=== PATIENT | male | born 1980 | race American Indian/Alaskan Native ===

== ENCOUNTER 2017-07-09 21:05 | Emergency (ER) | payer SELFPAY ==
[2017-07-09] MEDS ORDERED: ASPIRIN PO ONE (21:38)
--- NOTE | 2017-07-10 01:22 | XRay Report ---
FINAL REPORT EXAM: XR CXR CLINICAL INDICATIONS: Chest Pain FINDINGS: Frontal and lateral views the chest were acquired. The heart is normal in size. The lungs appear clear. The pleura and mediastinum are within normal limits. IMPRESSION: NO ACTIVE DISEASE IN THE CHEST
[2017-07-10] MEDS ORDERED: MOTRIN PO ONE (01:41)
--- NOTE | 2017-07-10 01:47 | Emergency Department Report ---
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 Patient denies any accompanying shortness of breath, nausea, fever, chills. Patient also denies any exacerbating factors. Patient refuses any labs, states he just wants some medicine for the pain. Advised about risk of not having blood tests , he voices understanding and still refuses. ED Past Medical Hx - Past Medical History Previous Medical History?: No - Surgical History Past Surgical History?: No - Social History Smoking Status: Current Every Day Smoker Substance Use Type: Marijuana - Medications Home Medications: Home Medications Medication Instructions Recorded Confirmed Last Taken Type Ibuprofen [Motrin 800 MG tab] 800 mg PO ONCE PRN #15 tablet 07/10/17 Unknown Rx ED Review of Systems ROS: Stated complaint: CP Other details as noted in HPI Physical Exam - Physical Exam Vital Signs: Vital Signs 07/09/17 07/10/17 07/10/17 21:32 00:27 00:30 Temperature 99.7 F H 98.6 F Pulse Rate 85 67 Respiratory 16 17 Rate Blood Pressure 139/78 128/76 Blood Pressure 128/80 [Left] O2 Sat by Pulse 99 98 99 Oximetry 07/10/17 00:45 Temperature Pulse Rate 72 Respiratory Rate Blood Pressure Blood Pressure [Left] O2 Sat by Pulse Oximetry Physical Exam: - Physical Exam Physical Exam: - General Limitations: No Limitations General appearance: alert, in no apparent distress. - Head Head exam: Present: atraumatic, normocephalic - Eye Eye exam: Present: normal appearance - ENT ENT exam: Present: mucous membranes moist - Neck Neck exam: Present: normal inspection - Respiratory Respiratory exam: Present: normal lung sounds bilaterally. Absent: respiratory distress - Cardiovascular Cardiovascular Exam: Present: normal rhythm, tachycardia. Absent: systolic murmur, diastolic murmur, rubs, gallop, midsternal tenderness on palpation - GI/Abdominal GI/Abdominal exam: Present: soft, normal bowel sounds - Extremities Exam Extremities exam: Present: normal inspection - Back Exam Back exam: Present: normal inspection - Neurological Exam Neurological exam: Present: alert, oriented X3 - Psychiatric Psychiatric exam: normal affect and mood - Skin Skin exam: Present: warm, dry, intact, normal color. Absent: rash ED Course Vital Signs 07/09/17 07/10/17 07/10/17 21:32 00:27 00:30 Temperature 99.7 F H 98.6 F Pulse Rate 85 67 Respiratory 16 17 Rate Blood Pressure 139/78 128/76 Blood Pressure 128/80 [Left] O2 Sat by Pulse 99 98 99 Oximetry 07/10/17 00:45 Temperature Pulse Rate 72 Respiratory Rate Blood Pressure Blood Pressure [Left] O2 Sat by Pulse Oximetry Critical care attestation.: If time is entered above; I have spent that time in minutes in the direct care of this critically ill patient, excluding procedure time. ED Disposition Clinical Impression: Atypical chest pain Disposition: DC-01 TO HOME OR SELFCARE Is pt being admited?: No Does the pt Need Aspirin: No Condition: Stable Instructions: Chest Pain (ED) Prescriptions: Ibuprofen [Motrin 800 MG tab] 800 mg PO ONCE PRN #15 tablet PRN Reason: Pain Referrals: TAMAR GONZALEZ MD [Primary Care Provider] - 3-5 Days
[2017-07-10 01:55] VITALS: BP 119/69
== END 2017-07-10 02:00 | disposition home or self-care (01) ==
LOC: ED 21:05
DX: R07.89 Other chest pain (principal); F17.200 Nicotine dependence, unspecified, uncomplicated; F12.10 Cannabis abuse, uncomplicated; Z88.0 Allergy status to penicillin
CPT/HCPCS: 71046; 93005; 93010